=== PATIENT | female | born 1945 | race Caucasian/White ===

== ENCOUNTER 2020-03-23 14:18 | Emergency (ER) | payer MEDICARE ==
[~2020-03-23] VITALS: Ht 160 cm; Wt 83.9 kg
[2020-03-23 15:07] LABS: ABSOLUTE BASOPHILS 0.1 thou/uL (0.0-0.2); ABSOLUTE EOSINOPHILS 0.2 thou/uL (0.0-0.7); ABSOLUTE LYMPHOCYTES 1.3 thou/uL (0.8-5.3); ABSOLUTE MONOCYTES 0.5 thou/uL (0.0-1.2); BASOPHILS 1.3 %; EOSINOPHILS 3.2 %; HEMATOCRIT 41.4 % (37.0-47.0); HEMOGLOBIN 14.1 gm/dL (12.0-15.0); LYMPHOCYTES 18.5 %; MCH 30.5 pg (26.0-34.0); MCV 89.8 fL (80.0-100.0); MONOCYTES 6.7 %; MPV 7.4 fl. (7.2-11.1); NUCLEATED RBCS 0 /100WBC; PLATELET COUNT* 304 thou/uL (150-400); POLYS 70.3 %; RBC 4.61 mil/uL (4.20-5.00); RDW-CV 13.9 % (10.5-14.5); WBC 7.1 thou/uL (4.0-11.0)
[2020-03-23 15:11] LABS: URINE BILIRUBIN NEGATIVE (Negative); URINE BLOOD 1+ (Negative); URINE CLARITY CLEAR; URINE COLOR YELLOW; URINE GLUCOSE-RANDOM NEGATIVE (Negative); URINE KETONES NEGATIVE (Negative); URINE LEUKOCYTES-REFLEX 1+ (Negative); URINE NITRITE-REFLEX NEGATIVE (Negative); URINE PROTEIN NEGATIVE (Negative); URINE SPECIFIC GRAVITY 1.025 (1.005-1.030); URINE UROBILINOGEN 0.2 E.U./dl (0.2-1.0)
[2020-03-23 15:12] LABS: POTASSIUM 4.1 mmol/L (3.5-5.1)
[2020-03-23 15:20] LABS: AMP/METHAMP Negative (Negative); BARBITURATES Negative (Negative); BENZODIAZEPINES POSITIVE (Negative); COCAINE Negative (Negative); METHADONE Negative (Negative); OPIATES Negative (Negative); PCP Negative (Negative); THC Negative (Negative)
[2020-03-23 15:27] LABS: ALBUMIN 3.2 g/dL (3.4-5.0); CALCIUM 8.5 mg/dL (8.5-10.1); CREATININE 1.1 mg/dL (0.6-1.3); TOTAL BILIRUBIN 0.4 mg/dL (<0.1-1.0)
[2020-03-23 15:31] LABS: BACTERIA-REFLEX >30 Many /HPF (None Seen); CASTS None Seen /LPF (None Seen); SQUAMOUS >10 Many /LPF (0-3); URIC ACID CRYSTALS 0-3 Few /LPF (None Seen); URINE RBC 0-2 Rare /HPF (0-2); URINE WBC-REFLEX 6-15 Few /HPF (0-5)
[2020-03-23 15:33] LABS: ACETAMINOPHEN < 2 ug/mL (10-30); ALCOHOL < 10 mg/dL (<10); SALICYLATE < 2.8 mg/dL (2.8-20.0)
[2020-03-23] MEDS ORDERED: KEFLEX500 M1 PO (16:11)
[2020-03-23 16:13] VITALS: BP 139/70
== END 2020-03-23 16:14 | disposition home or self-care (01) ==
LOC: M.ERS 14:18
PROVIDERS: Emergency Medicine Emergency Medical Services
DX: F32.9 Major depressive disorder, single episode, unspecified (principal); I10 Essential (primary) hypertension; Z88.8 Allergy status to other drugs, medicaments and biological substances

== ENCOUNTER → 2020-07-22 | Outpatient (CLI) | payer MEDICARE ==
[~2020-07-22] MED LIST: KEFLEX500 M1 PO
== END ==
LOC: M.RAD 14:19
PROVIDERS: ATTEND Orthopaedic Surgery
DX: M17.0 Bilateral primary osteoarthritis of knee (principal); M25.562 Pain in left knee; M25.561 Pain in right knee

== ENCOUNTER → 2020-08-03 | Outpatient (CLI) | payer MEDICARE | LOC: M.RAD 13:20 | PROVIDERS: ATTEND Orthopaedic Surgery | DX: M16.0 Bilateral primary osteoarthritis of hip (principal) ==

== ENCOUNTER 2020-11-05 12:18 | Emergency (ER) | payer OTHER ==
[~2020-11-05] VITALS: Ht 160 cm; Wt 93.0 kg
[2020-11-05] MEDS ORDERED: NORVASC5 MG PO (12:44)
[2020-11-05] MEDS ORDERED: WELLBUTRIN XL300 MG PO (12:45)
[2020-11-05] MEDS ORDERED: CELEBREX 200 M200 M1 PO (12:45)
[2020-11-05] MEDS ORDERED: AVAPRO75 MG PO ×2 (12:45)
[2020-11-05] MEDS ORDERED: AVAPRO 150 MG150 MG PO (12:45)
[2020-11-05 12:49] LABS: ABSOLUTE BASOPHILS 0.1 thou/uL (0.0-0.2); ABSOLUTE EOSINOPHILS 0.2 thou/uL (0.0-0.7); ABSOLUTE LYMPHOCYTES 1.4 thou/uL (0.8-5.3); ABSOLUTE MONOCYTES 0.7 thou/uL (0.0-1.2); ABSOLUTE NEUTROPHILS 6.7 thou/uL (1.6-8.1); BASOPHILS 1.1 %; EOSINOPHILS 1.7 %; HEMATOCRIT 39.9 % (37.0-47.0); HEMOGLOBIN 13.2 gm/dL (12.0-15.0); LYMPHOCYTES 15.9 %; MCH 30.3 pg (26.0-34.0); MCHC 33.1 g/dL (28.0-37.0); MCV 91.6 fL (80.0-100.0); MONOCYTES 7.9 %; MPV 6.8 fl. (7.2-11.1); NUCLEATED RBCS 0 /100WBC; PLATELET COUNT* 308 thou/uL (150-400); POLYS 73.4 %; RBC 4.36 mil/uL (4.20-5.00); RDW-CV 13.4 % (10.5-14.5); WBC 9.1 thou/uL (4.0-11.0)
[2020-11-05 12:57] LABS: CALCIUM 9.5 mg/dL (8.5-10.1); POTASSIUM 4.5 mmol/L (3.5-5.1)
[2020-11-05 13:00] LABS: APTT 24.8 Seconds (25.0-31.3); PROTIME 10.2 Seconds (9.20-11.50)
[2020-11-05 13:07] LABS: ALBUMIN 3.6 g/dL (3.4-5.0); TOTAL BILIRUBIN 0.7 mg/dL (<0.1-1.0); TOTAL PROTEIN 7.1 g/dL (6.4-8.2)
[2020-11-05 13:32] LABS: CK-MB MASS 0.7 ng/mL (<0.5-3.6)
[2020-11-05 13:40] LABS: URINE BILIRUBIN NEGATIVE (Negative); URINE BLOOD NEGATIVE (Negative); URINE CLARITY CLEAR; URINE COLOR YELLOW; URINE GLUCOSE-RANDOM NEGATIVE (Negative); URINE KETONES NEGATIVE (Negative); URINE LEUKOCYTES-REFLEX 1+ (Negative); URINE NITRITE-REFLEX NEGATIVE (Negative); URINE PROTEIN NEGATIVE (Negative); URINE UROBILINOGEN 0.2 E.U./dl (0.2-1.0)
[2020-11-05 13:48] LABS: BACTERIA-REFLEX 1-9 Few /HPF (None Seen); CASTS None Seen /LPF (None Seen); MUCUS 0-3 Light strn/LPF (None Seen); SQUAMOUS 0-3 Few /LPF (0-3); URINE RBC 0-2 Rare /HPF (0-2); URINE WBC-REFLEX 6-15 Few /HPF (0-5)
[2020-11-05 13:49] LABS: CRYSTALS None Seen /LPF (None Seen)
[2020-11-05 16:07] VITALS: BP 142/70
--- NOTE | 2020-11-06 13:53 | EKG ---
[place] [address] ELECTROCARDIOGRAM REPORT Name: VANESA MARTINEZ Room: [facility]#: [id number] Admission: 11/05/20 Attend Phys: Discharge: 11/05/20 Date of : 41 Date of Service: 11/05/20 1227 Report #: [id number] THIS REPORT FOR: //name// [facility] ED Test Date: 2020-11-05 Test Time: 12:27:02 Pat Name: VANESA MARTINEZ Department: Room: Gender: F Pivot Maker: JOSÉ LUIS : 1945 Requested By: Manuel Mora Order Number: [id number] MD: Graham Villagran Measurements Intervals Gregory Rate: 65 P: 80 MD: 164 QRS: 3 QRSD: 95 T: 37 QT: 395 QTc: 411 Interpretive Statements Sinus rhythm Low voltage, precordial leads Abnormal R-wave progression, early transition No previous ECG available for comparison Electronically Signed On 11-06-2020 13:53:09 DRAFTING DETAILER by Graham Villagran [email or web address] <ELECTRONICALLY SIGNED> By: Graham Villagran MD, [facility] 11/06/20 1353 1227 1227 Graham Villagran MD, [facility] /EPI
== END 2020-11-05 16:07 | disposition home or self-care (01) ==
LOC: M.ERS 12:18
PROVIDERS: Family Medicine
DX: R53.1 Weakness (principal); R41.82 Altered mental status, unspecified; I10 Essential (primary) hypertension; R42 Dizziness and giddiness; Z88.8 Allergy status to other drugs, medicaments and biological substances; Z79.899 Other long term (current) drug therapy

== ENCOUNTER → 2020-11-08 | Outpatient (CLI) | payer OTHER ==
[~2020-11-08] MED LIST changes: +AVAPRO 150 MG150 MG PO; +AVAPRO75 MG PO; +CELEBREX 200 M200 M1 PO; +NORVASC5 MG PO; +WELLBUTRIN XL300 MG PO
== END ==
LOC: M.ULTRA 07:30
PROVIDERS: ATTEND Internal Medicine Gastroenterology
DX: R10.13 Epigastric pain (principal); R10.11 Right upper quadrant pain; R11.0 Nausea

== ENCOUNTER 2020-11-30 12:06 | Emergency (ER) | payer OTHER ==
[~2020-11-30] VITALS: Ht 160 cm; Wt 90.7 kg
[2020-11-30 12:44] LABS: ABSOLUTE BASOPHILS 0.1 thou/uL (0.0-0.2); ABSOLUTE EOSINOPHILS 0.1 thou/uL (0.0-0.7); ABSOLUTE LYMPHOCYTES 1.2 thou/uL (0.8-5.3); ABSOLUTE MONOCYTES 0.5 thou/uL (0.0-1.2); ABSOLUTE NEUTROPHILS 5.3 thou/uL (1.6-8.1); EOSINOPHILS 1.9 %; HEMATOCRIT 40.2 % (37.0-47.0); HEMOGLOBIN 13.3 gm/dL (12.0-15.0); LYMPHOCYTES 16.6 %; MCH 29.8 pg (26.0-34.0); MCHC 33.2 g/dL (28.0-37.0); MCV 89.9 fL (80.0-100.0); MONOCYTES 7.1 %; MPV 6.5 fl. (7.2-11.1); NUCLEATED RBCS 0 /100WBC; PLATELET COUNT* 326 thou/uL (150-400); POLYS 73.4 %; RBC 4.47 mil/uL (4.20-5.00); RDW-CV 12.9 % (10.5-14.5); WBC 7.3 thou/uL (4.0-11.0)
[2020-11-30 12:54] LABS: CALCIUM 9.3 mg/dL (8.5-10.1); CREATININE 0.9 mg/dL (0.6-1.3); POTASSIUM 4.4 mmol/L (3.5-5.1)
[2020-11-30 13:03] LABS: ALBUMIN 3.4 g/dL (3.4-5.0); TOTAL BILIRUBIN 0.6 mg/dL (<0.1-1.0); TOTAL PROTEIN 6.9 g/dL (6.4-8.2)
[2020-11-30 13:58] LABS: URINE BILIRUBIN NEGATIVE (Negative); URINE BLOOD NEGATIVE (Negative); URINE CLARITY CLEAR; URINE COLOR YELLOW; URINE GLUCOSE-RANDOM NEGATIVE (Negative); URINE KETONES NEGATIVE (Negative); URINE LEUKOCYTES-REFLEX TRACE (Negative); URINE NITRITE-REFLEX NEGATIVE (Negative); URINE PROTEIN NEGATIVE (Negative); URINE SPECIFIC GRAVITY 1.015 (1.005-1.030); URINE UROBILINOGEN 0.2 E.U./dl (0.2-1.0)
[2020-11-30 14:03] LABS: SQUAMOUS 0-3 Few /LPF (0-3)
[2020-11-30 14:04] LABS: URINE RBC None Seen /HPF (0-2); URINE WBC-REFLEX 0-5 Rare /HPF (0-5)
[2020-11-30 14:06] LABS: BACTERIA-REFLEX 1-9 Few /HPF (None Seen); CASTS None Seen /LPF (None Seen); CRYSTALS None Seen /LPF (None Seen); MUCUS None Seen strn/LPF (None Seen)
[2020-11-30] MEDS ORDERED: ONDANSETRON HCL4 M2 PO (14:42)
[2020-11-30 14:45] VITALS: BP 162/57
--- NOTE | 2020-11-30 16:32 | EKG ---
[place] [address] ELECTROCARDIOGRAM REPORT Name: VANESA MARTINEZ Room: [facility]#: [id number] Admission: 11/30/20 Attend Phys: Discharge: 11/30/20 Date of : 41 Date of Service: 11/30/20 1244 Report #: [id number] THIS REPORT FOR: //name// [facility] ED Test Date: 2020-11-30 Test Time: 12:44:35 Pat Name: VANESA MARTINEZ Department: Room: Gender: F Bill Distributor: : 1945 Requested By: Manuel Mora Order Number: [id number] MD: Graham Villagran Measurements Intervals [place] Rate: 62 P: 119 AK: 129 QRS: -18 QRSD: 95 T: 23 QT: 417 QTc: 424 Interpretive Statements Sinus rhythm Inferior infarct, old Compared to ECG 11/05/2020 12:27:02 no change Electronically Signed On 11-30-2020 16:32:41 LINING PRINTER by Graham Villagran [email or web address] <ELECTRONICALLY SIGNED> By: Graham Villagran MD, [facility] 11/30/20 1632 1244 1244 Graham Villagran MD, [facility] /EPI
== END 2020-11-30 14:47 | disposition home or self-care (01) ==
LOC: M.ERS 12:06
PROVIDERS: Family Medicine
DX: R10.10 Upper abdominal pain, unspecified (principal); Z88.2 Allergy status to sulfonamides; Z88.8 Allergy status to other drugs, medicaments and biological substances

== ENCOUNTER 2021-07-03 15:33 | Emergency (ER) | payer OTHER ==
[~2021-07-03] VITALS: Ht 162.6 cm; Wt 90.7 kg
[~2021-07-03 15:33] MED LIST changes: +ONDANSETRON HCL4 M2 PO
[2021-07-03 17:56] LABS: ABSOLUTE BASOPHILS 0.1 thou/uL (0.0-0.2); ABSOLUTE EOSINOPHILS 0.2 thou/uL (0.0-0.7); ABSOLUTE LYMPHOCYTES 1.7 thou/uL (0.8-5.3); ABSOLUTE MONOCYTES 0.7 thou/uL (0.0-1.2); ABSOLUTE NEUTROPHILS 4.6 thou/uL (1.6-8.1); BASOPHILS 0.9 %; EOSINOPHILS 3.2 %; HEMATOCRIT 43.6 % (37.0-47.0); HEMOGLOBIN 14.1 gm/dL (12.0-15.0); LYMPHOCYTES 23.3 %; MCH 30.4 pg (26.0-34.0); MCHC 32.3 g/dL (28.0-37.0); MCV 94.1 fL (80.0-100.0); MONOCYTES 9.3 %; MPV 6.4 fl. (7.2-11.1); NUCLEATED RBCS 0 /100WBC; PLATELET COUNT* 283 thou/uL (150-400); POLYS 63.3 %; RBC 4.63 mil/uL (4.20-5.00); RDW-CV 14.7 % (10.5-14.5); WBC 7.3 thou/uL (4.0-11.0)
[2021-07-03 18:16] LABS: CALCIUM 8.8 mg/dL (8.5-10.1); CREATININE 0.9 mg/dL (0.6-1.3); POTASSIUM 3.8 mmol/L (3.5-5.1)
[2021-07-03 18:21] LABS: ALBUMIN 3.5 g/dL (3.4-5.0); TOTAL BILIRUBIN 0.4 mg/dL (<0.1-1.0)
[2021-07-03 19:33] LABS: URINE BILIRUBIN NEGATIVE (Negative); URINE BLOOD NEGATIVE (Negative); URINE CLARITY CLEAR; URINE COLOR YELLOW; URINE GLUCOSE-RANDOM NEGATIVE (Negative); URINE KETONES NEGATIVE (Negative); URINE LEUKOCYTES-REFLEX NEGATIVE (Negative); URINE NITRITE-REFLEX NEGATIVE (Negative); URINE PROTEIN NEGATIVE (Negative); URINE UROBILINOGEN 0.2 E.U./dl (0.2-1.0)
[2021-07-03] MEDS ORDERED: ZANAFLEX4 MG PO (19:40)
[2021-07-03 20:00] VITALS: BP 150/66
--- NOTE | 2021-07-04 11:44 | EKG ---
[place] [address] ELECTROCARDIOGRAM REPORT Name: VANESA MARTINEZ Room: [facility]#: [id number] Admission: 07/03/21 Attend Phys: Discharge: 07/03/21 Date of : 41 Date of Service: 07/03/211740 Report #: [id number] THIS REPORT FOR: //name// [facility] ED Test Date: 2021-07-03 Test Time: 17:41:23 Pat Name: VANESA VILLELAVALDO Department: Room: Gender: F Outbound Sales Agent: CM : 1945 Requested By: Collette Armendariz Order Number: [id number] MD: Phong Mishra Measurements Intervals [place] Rate: 64 P: 49 AR: 171 QRS: -11 QRSD: 97 T: 30 QT: 420 QTc: 434 Interpretive Statements Sinus rhythm Abnormal R-wave progression, early transition Baseline wander in lead(s) I,III,aVL,aVF Compared to ECG 11/30/2020 12:44:35 Myocardial infarct finding no longer present Electronically Signed On 07-04-2021 11:44:27 CDT by Phong Mishra [email or web address] <ELECTRONICALLY SIGNED> By: Phong Mishra MD, FACC 07/04/21 1144 174 174 Phong Mishra MD, FAC /EPI
== END 2021-07-03 20:00 | disposition home or self-care (01) ==
LOC: M.ERS 15:33
PROVIDERS: Nurse Practitioner Family
DX: S16.1XXA Strain of muscle, fascia and tendon at neck level, initial encounter (principal); S39.012A Strain of muscle, fascia and tendon of lower back, initial encounter; S09.8XXA Other specified injuries of head, initial encounter; M25.552 Pain in left hip; M25.551 Pain in right hip; F32.9 Major depressive disorder, single episode, unspecified; I10 Essential (primary) hypertension; Z79.899 Other long term (current) drug therapy; Z88.8 Allergy status to other drugs, medicaments and biological substances; Z88.2 Allergy status to sulfonamides; W01.198A Fall on same level from slipping, tripping and stumbling with subsequent striking against other object, initial encounter; Y93.89 Activity, other specified; Y92.89 Other specified places as the place of occurrence of the external cause; Y99.8 Other external cause status